=== PATIENT | male | born 1950 | race Caucasian/White ===

== ENCOUNTER 2019-02-14 06:29 | Day surgery (SDC) | payer MEDICARE, OTHER ==
[~2019-02-14] VITALS: Ht 177.8 cm; Wt 89.1 kg
[~2019-02-14 06:29] MED LIST: SODIUM CHLORIDE 0.9% 0 ML IV ONE; SODIUM CHLORIDE 0.9% 1,000 ML IV ONE
[2019-02-14] MEDS ORDERED: SODIUM CHLORIDE 0.9% 1,000 ML IV ONE (06:30)
[2019-02-14 07:48] LABS: GLUCOMETER DEV NAME(LOC) SDS.; GLUCOSE,POINT OF CARE 107 MG/DL (70-110)
[2019-02-14] MEDS ORDERED: FISH1CAP27 PO (07:50)
[2019-02-14] MEDS ORDERED: MONT10TA21 PO (07:50)
[2019-02-14] MEDS ORDERED: LOSA1TAB40 PO (07:50)
[2019-02-14] MEDS ORDERED: ASPI81 PO (07:50)
[2019-02-14] MEDS ORDERED: METO50 PO (07:50)
[2019-02-14] MEDS ORDERED: UMEC62.5 IH (07:50)
[2019-02-14] MEDS ORDERED: OMEP20 PO (07:50)
[2019-02-14] MEDS ORDERED: IBUP-1506 PO (07:50)
[2019-02-14] MEDS ORDERED: ESCI10TA PO (07:50)
[2019-02-14] MEDS ORDERED: SIMV-260 PO (07:50)
[2019-02-14] MEDS ORDERED: FentaNYL CITRATE-PF 100 MCG/2 ML VIAL ONE (08:02)
[2019-02-14] MEDS ORDERED: MIDAZOLAM HCL 2 MG/2 ML VIAL ONE (08:02)
[2019-02-14] MEDS ORDERED: MethylPREDNISolone SOD SUCC 125 MG/2 ML VIAL IVP ONE (09:00)
[2019-02-14] MEDS ORDERED: MethylPREDNISolone SOD SUCC 125 MG/2 ML VIAL ONE (09:17)
[2019-02-14] MEDS ORDERED: LIDOCAINE 2% 30 ML JELLY ONE (18:07)
[2019-02-14] MEDS ORDERED: LIDOCAINE 4% 50 ML SOLUTION ONE (18:07)
[2019-02-14] MEDS ORDERED: ALBUTEROL SULFATE 2.5 MG/0.5 ML NEB SOLUTION NEB ONE (18:07)
[2019-02-14] MEDS ORDERED: BENZOCAINE 20% 50 MCG/SPRAY 57 GM ONE (18:07)
[2019-02-14] MEDS ORDERED: OXYGEN THERAPY IH SCH (20:00)
== END 2019-02-14 10:35 | disposition home or self-care (01) ==
LOC: SURGERY 06:29
PROVIDERS: ATTEND Internal Medicine Critical Care Medicine
DX: R05 Cough (principal); R91.1 Solitary pulmonary nodule; J18.9 Pneumonia, unspecified organism; J34.89 Other specified disorders of nose and nasal sinuses; J38.4 Edema of larynx; B37.0 Candidal stomatitis; I10 Essential (primary) hypertension; J44.9 Chronic obstructive pulmonary disease, unspecified; I25.10 Atherosclerotic heart disease of native coronary artery without angina pectoris; E11.9 Type 2 diabetes mellitus without complications; E78.00 Pure hypercholesterolemia, unspecified; Z79.899 Other long term (current) drug therapy
CPT/HCPCS: 31623; 31624; 71045; 82962; 87015; 87070; 87101; 87205; 87206; 87220; 88108; 88312; J2250; J2930; J3010; J7030

== ENCOUNTER 2021-07-03 05:30 | Day surgery (SDC) | payer MEDICARE, OTHER ==
[~2021-07-03] VITALS: Ht 177.8 cm; Wt 90.9 kg
[~2021-07-03 05:30] MED LIST changes: +ALBU8HFA IH; +ALEN35TA53 PO; +ASPI-1450 PO; +CHOL500013 PO; +ESCI-8 PO; +FISH1CAP27 PO; +FLUT1DIS26 IH; +GLIP5 PO; +IBUP-2070 PO; +LOSA1TAB40 PO; +MONT-35 PO; +PANT40TA54 PO; +PRED-729 PO; +SIMV-260 PO; +SITA50 PO; -SODIUM CHLORIDE 0.9% 0 ML IV ONE; -SODIUM CHLORIDE 0.9% 1,000 ML IV ONE; +UMEC62.5 IH
[2021-07-03] MEDS ORDERED: LIDOCAINE 2% 5 ML JELLY TP ONE (05:31)
[2021-07-03] MEDS ORDERED: LIDOCAINE 4% 50 ML SOLUTION TP ONE (05:31)
[2021-07-03] MEDS ORDERED: BENZOCAINE 20% 50 MCG/SPRAY 57 GM TP ONE (05:31)
[2021-07-03] MEDS ORDERED: SODIUM CHLORIDE 0.9% 1,000 ML ONE (06:15)
[2021-07-03] MEDS ORDERED: SODIUM CHLORIDE 0.9% 1,000 ML IV ONE (06:30)
[2021-07-03 06:40] LABS: COVID AG,FIA SOURCE NASOPHARYNGEAL
[2021-07-03] MEDS ORDERED: METO25 PO (06:52)
[2021-07-03] MEDS ORDERED: FentaNYL CITRATE PF 100 MCG/2 ML VIAL ONE (07:12)
[2021-07-03] MEDS ORDERED: MIDAZOLAM HCL 5 MG/ML VIAL ONE (07:13)
[2021-07-03] MEDS ORDERED: MethylPREDNISolone SOD SUCC 125 MG/2 ML VIAL IVP ONE (09:15)
[2021-07-03] MEDS ORDERED: OXYGEN THERAPY IH SCH (20:00)
== END 2021-07-03 12:50 | disposition left against medical advice (07) ==
LOC: SURGERY 05:30
PROVIDERS: ATTEND Internal Medicine Critical Care Medicine
DX: J38.4 Edema of larynx (principal); B37.0 Candidal stomatitis; I10 Essential (primary) hypertension
CPT/HCPCS: 31623; 31624; 71045; 87015; 87070; 87101; 87206; 87220; 87426; 88112; 88184; 88185; 88312; C9803; J2250; J2930; J3010; J7030; Z7610

== ENCOUNTER 2024-09-12 16:34 | Emergency (ER) | payer MEDICARE, OTHER ==
[~2024-09-12] VITALS: Ht 167.6 cm; Wt 85.7 kg
[~2024-09-12 16:34] MED LIST changes: +ALBU18HF12 IH; -ALBU8HFA IH; +FLUT1BLS7 IH; -FLUT1DIS26 IH; -GLIP5 PO; +GLIP5TAB16 PO; +METO25 PO
[2024-09-12 16:58] VITALS: TEMP 97.9
[2024-09-12 17:15] LABS: GLUCOMETER DEV NAME(LOC) ER.7; GLUCOSE,POINT OF CARE 85 MG/DL (70-110)
[2024-09-12 18:00] VITALS: BP 122/70; PULSE 77; RESP 18; O2SAT 95
== END 2024-09-12 18:35 | disposition home or self-care (01) ==
LOC: EMS 16:34
DX: F10.129 Alcohol abuse with intoxication, unspecified (principal); E11.9 Type 2 diabetes mellitus without complications; Z79.52 Long term (current) use of systemic steroids; Z79.82 Long term (current) use of aspirin; Z79.899 Other long term (current) drug therapy; Z79.51 Long term (current) use of inhaled steroids; Y90.9 Presence of alcohol in blood, level not specified
CPT/HCPCS: 82962; 99283

== ENCOUNTER 2024-10-12 06:56 | Day surgery (SDC) | payer MEDICARE, OTHER ==
[~2024-10-12] VITALS: Ht 162.6 cm; Wt 81.8 kg
[~2024-10-12 06:56] MED LIST changes: -ALEN35TA53 PO; +AMLO5TAB66 PO; +ATOR20TA65 PO; +BACL20TA PO; +BUSP10TA23 PO; +FAMO20 PO; +FLUT16H NASAL; +FLUT1BLS15 IH; -FLUT1BLS7 IH; +GABA-1181 PO; -GLIP5TAB16 PO; -IBUP-2070 PO; +LOSA100T59 PO; -LOSA1TAB40 PO; +METF-1211 PO; -METO25 PO; -PANT40TA54 PO; -PRED-729 PO; -SIMV-260 PO; -SITA50 PO; +SODIUM CHLORIDE 0.9% 1,000 ML IV ONE; +SODIUM CHLORIDE 0.9% 1,000 ML ONE; -UMEC62.5 IH
[2024-10-12] MEDS: SODIUM CHLORIDE 0.9% 1,000 ML IV ONE (07:48)
[2024-10-12] MEDS ORDERED: FentaNYL CITRATE PF 100 MCG/2 ML VIAL ONE (07:52)
[2024-10-12] MEDS ORDERED: MIDAZOLAM HCL 2 MG/2 ML VIAL ONE (07:52)
[2024-10-12 08:56] LABS: GLUCOMETER DEV NAME(LOC) SDS.; GLUCOSE,POINT OF CARE 138 MG/DL (70-110)
[2024-10-12 10:02] VITALS: PULSE 66; RESP 19; O2SAT 100
[2024-10-12] MEDS ORDERED: LIDOCAINE 4% 50 ML SOLUTION ONE (12:00)
[2024-10-12] MEDS ORDERED: LIDOCAINE 2% 11 ML JELLY ONE (12:00)
[2024-10-12] MEDS ORDERED: BENZOCAINE 20% 50 MCG/SPRAY 57 GM ONE (12:00)
[2024-10-12] MEDS ORDERED: ALBUTEROL SULFATE 2.5 MG/0.5 ML NEB SOLUTION NEB ONE (12:00)
== END 2024-10-12 13:25 | disposition left against medical advice (07) ==
LOC: SURGERY 06:56
PROVIDERS: ATTEND Internal Medicine Critical Care Medicine
DX: R05.3 Chronic cough (principal); J38.4 Edema of larynx; I10 Essential (primary) hypertension; E78.00 Pure hypercholesterolemia, unspecified; E11.9 Type 2 diabetes mellitus without complications; B37.0 Candidal stomatitis; Z79.899 Other long term (current) drug therapy; Z87.891 Personal history of nicotine dependence
CPT/HCPCS: 31623; 82962; 87206; 87101; 87220; 87070; 88108; 87186; 31624; 94640; 71045; 87015; J3010; J2250; J2919; J7030; J7613; Z7610